=== PATIENT | female | born 1985 ===

== ENCOUNTER 2020-08-22 13:40 | Emergency (ER) | payer OTHER ==
[~2020-08-22] VITALS: Ht 165.1 cm; Wt 90.7 kg
[2020-08-22] MEDS ORDERED: BACLOFEN10 MG PO (13:53)
== END 2020-08-22 15:01 | disposition home or self-care (01) ==
LOC: ER 13:40
DX: M94.0 Chondrocostal junction syndrome [Tietze] (principal); R07.89 Other chest pain